=== PATIENT | male | born 1970 | race African-American/Black ===

== ENCOUNTER 2017-11-28 04:38 | Emergency (ER) | payer OTHER ==
[~2017-11-28] VITALS: Ht 188 cm; Wt 94.2 kg
[2017-11-28] MEDS ORDERED: AMOX125T PO (04:56)
[2017-11-28] MEDS ORDERED: ACET325T14 PO (04:56)
[2017-11-28 04:57] VITALS: BP 132/73
== END 2017-11-28 05:27 | disposition home or self-care (01) ==
LOC: ED 05:00
DX: K08.89 Other specified disorders of teeth and supporting structures (principal)
CPT/HCPCS: 99283